=== PATIENT | female | born 1990 ===

== ENCOUNTER 2021-02-21 22:08 | Emergency (ER) | payer OTHER ==
[~2021-02-21] VITALS: Ht 160 cm; Wt 81.6 kg
[2021-02-21] MEDS ORDERED: METFORMIN HCL1000 M2 (22:24)
[2021-02-21] MEDS ORDERED: GLIPIZIDE (22:25)
[2021-02-22] MEDS ORDERED: CEPHALEXIN500 MG PO (02:29)
[2021-02-22] MEDS ORDERED: PYRIDIUM100 M1 PO (02:29)
== END 2021-02-22 02:50 | disposition home or self-care (01) ==
LOC: EDBD 22:08 → ER 22:08
DX: O23.41 Unspecified infection of urinary tract in pregnancy, first trimester (principal); R10.2 Pelvic and perineal pain; R30.0 Dysuria; Z3A.01 Less than 8 weeks gestation of pregnancy